=== PATIENT | female | born 1950 | race Asian ===

== ENCOUNTER 2018-06-02 16:08 | Outpatient (CLI) | payer OTHER | END 2018-06-02 20:54 | disposition home or self-care (01) | LOC: RAD 16:08 | DX: R06.02 Shortness of breath (principal) ==

== ENCOUNTER 2019-07-08 08:08 | Outpatient (CLI) | payer OTHER ==
[2019-07-08 09:08] LABS: PLATELET COUNT 373 K/uL (152-353)
== END 2019-07-08 20:13 | disposition home or self-care (01) ==
LOC: LABW 08:08
PROVIDERS: Nurse Practitioner Family
DX: Z00.00 Encounter for general adult medical examination without abnormal findings (principal); R06.02 Shortness of breath; E78.00 Pure hypercholesterolemia, unspecified; R53.82 Chronic fatigue, unspecified; R73.09 Other abnormal glucose; R53.81 Other malaise; R05 Cough; Z79.899 Other long term (current) drug therapy; E55.9 Vitamin D deficiency, unspecified
CPT/HCPCS: 36415; 80053; 80061; 82306; 83036; 83880; 84439; 84443; 84481; 85027

== ENCOUNTER 2020-01-27 14:59 | Outpatient (CLI) | payer OTHER | END 2020-01-28 00:04 | disposition home or self-care (01) | LOC: RAD 14:59 | DX: M25.512 Pain in left shoulder (principal); R05 Cough ==

== ENCOUNTER 2020-03-16 08:32 | Outpatient (CLI) | payer OTHER | END 2020-03-16 20:05 | disposition home or self-care (01) | LOC: LAB 08:32 | DX: U07.1 COVID-19 (principal); R05 Cough; R53.83 Other fatigue; Z20.828 Contact with and (suspected) exposure to other viral communicable diseases | CPT/HCPCS: 87635; G2023; U0003 ==

== ENCOUNTER 2020-03-30 09:46 | Outpatient (CLI) | payer OTHER | END 2020-03-30 21:47 | disposition home or self-care (01) | LOC: LAB 09:46 | DX: R05 Cough (principal); R11.0 Nausea; Z11.59 Encounter for screening for other viral diseases | CPT/HCPCS: 87635; G2023; U0003 ==

== ENCOUNTER 2021-01-23 17:49 | Outpatient (CLI) | payer OTHER ==
[2021-01-23 18:31] LABS: PLATELET COUNT 296 K/uL (152-353)
[2021-01-23 19:03] LABS: SODIUM 141 mmol/L (136-145)
== END 2021-01-23 21:20 | disposition home or self-care (01) ==
LOC: RAD 17:49
PROVIDERS: ATTEND Nurse Practitioner Family
DX: R07.89 Other chest pain (principal)
CPT/HCPCS: 36415; 80053; 82550; 82553; 84484; 85027

== ENCOUNTER 2021-02-17 09:50 | Outpatient (CLI) | payer OTHER | END 2021-02-17 21:41 | disposition home or self-care (01) | LOC: US 09:50 | PROVIDERS: ATTEND Nurse Practitioner Family | DX: R94.6 Abnormal results of thyroid function studies (principal); Z13.820 Encounter for screening for osteoporosis; Z12.31 Encounter for screening mammogram for malignant neoplasm of breast; N95.8 Other specified menopausal and perimenopausal disorders ==

== ENCOUNTER 2021-02-23 10:07 | Outpatient (CLI) | payer OTHER ==
[2021-02-23 10:48] LABS: POTASSIUM 4.3 mmol/L (3.6-5.2)
== END 2021-02-23 18:00 | disposition home or self-care (01) ==
LOC: LABW 10:07
PROVIDERS: ATTEND Internal Medicine Cardiovascular Disease
DX: Z79.899 Other long term (current) drug therapy (principal)
CPT/HCPCS: 36415; 80053; 80061; 84443

== ENCOUNTER 2021-07-24 15:35 | Outpatient (CLI) | payer OTHER | END 2021-07-24 18:57 | disposition home or self-care (01) | LOC: RAD 15:35 | PROVIDERS: ATTEND Nurse Practitioner Family | DX: R05.1 Acute cough (principal) ==

== ENCOUNTER 2021-08-02 15:53 | Outpatient (CLI) | payer OTHER | END 2021-08-02 19:41 | disposition home or self-care (01) | LOC: RAD 15:53 | PROVIDERS: ATTEND Nurse Practitioner Family | DX: M25.461 Effusion, right knee (principal); M76.61 Achilles tendinitis, right leg ==

== ENCOUNTER 2021-09-07 07:56 | Outpatient (CLI) | payer OTHER ==
[~2021-09-07] VITALS: Ht 172.7 cm; Wt 112.5 kg
== END 2021-09-07 21:23 | disposition home or self-care (01) ==
LOC: NM 07:56
PROVIDERS: ATTEND Nurse Practitioner Family
DX: R94.31 Abnormal electrocardiogram [ECG] [EKG] (principal)
CPT/HCPCS: A9500; J2785

== ENCOUNTER 2021-09-13 15:16 | Outpatient (CLI) | payer OTHER | END 2021-09-13 19:20 | disposition home or self-care (01) | LOC: RAD 15:16 | PROVIDERS: ATTEND Nurse Practitioner Family | DX: M25.561 Pain in right knee (principal) ==

== ENCOUNTER 2022-02-19 13:11 | Outpatient (CLI) | payer OTHER | END 2022-02-19 20:12 | disposition home or self-care (01) | LOC: MAMMO 13:11 | PROVIDERS: ATTEND Nurse Practitioner Family | DX: Z12.31 Encounter for screening mammogram for malignant neoplasm of breast (principal) ==

== ENCOUNTER 2022-06-08 09:52 | Outpatient (CLI) | payer OTHER | END 2022-06-08 19:09 | disposition home or self-care (01) | LOC: RAD 09:52 | PROVIDERS: ATTEND Physician Assistant | DX: M79.671 Pain in right foot (principal) ==

== ENCOUNTER 2022-08-01 13:09 | Outpatient (CLI) | payer OTHER | END 2022-08-01 19:57 | disposition home or self-care (01) | LOC: US 13:09 | PROVIDERS: ATTEND Nurse Practitioner Family | DX: R22.31 Localized swelling, mass and lump, right upper limb (principal); R22.0 Localized swelling, mass and lump, head ==

== ENCOUNTER 2022-09-07 08:37 | Outpatient (CLI) | payer OTHER | END 2022-09-07 19:15 | LOC: CT 08:37 | PROVIDERS: ATTEND Nurse Practitioner Family | DX: L02.818 Cutaneous abscess of other sites (principal) | CPT/HCPCS: 36415; 82565; 84520; Q9963 ==

== ENCOUNTER 2022-12-12 13:56 | Outpatient (CLI) | payer OTHER | END 2022-12-12 20:00 | disposition home or self-care (01) | LOC: RAD 13:56 | PROVIDERS: ATTEND Nurse Practitioner Family | DX: M54.31 Sciatica, right side (principal) ==